=== PATIENT | male | born 1985 | race American Indian/Alaskan Native ===

== ENCOUNTER 2019-03-01 03:46 | Emergency (ER) | payer BC ==
[2019-03-01 04:14] LABS: Basophils % (Auto) 0.5 % (0.0-1.8); Eosinophils % (Auto) 0.1 % (0.0-4.3); Hemoglobin 15.8 gm/dl (11.8-15.2); Lymphocytes # (Auto) 2.1 K/mm3 (1.2-5.4); Lymphocytes % (Auto) 23.5 % (13.4-35.0); Mean Corpuscular HGB Conc 33 % (32-34); Monocytes # (Auto) 1.1 K/mm3 (0.0-0.8); Monocytes % (Auto) 11.9 % (0.0-7.3); Platelet Count 196 K/mm3 (140-440); Red Blood Count 6.99 M/mm3 (3.65-5.03); Red Cell Distribution Width 15.4 % (13.2-15.2)
[2019-03-01 04:16] LABS: Mean Corpuscular Volume 69 fl (84-94)
[2019-03-01 04:41] LABS: Alanine Aminotransferase 51 units/L (7-56); Albumin 4.6 g/dL (3.9-5); BUN/Creatinine Ratio 7; Blood Urea Nitrogen 8 mg/dL (9-20); Calcium 9.5 mg/dL (8.4-10.2); Hemolysis Index 8
[2019-03-01] MEDS ORDERED: NACL 0.9% 1000 ML 2,000 ML IV ONE (04:50)
[2019-03-01] MEDS ORDERED: ATIVAN IM PRN (04:50)
[2019-03-01] MEDS ORDERED: PEPCID IV ONE (04:50)
--- NOTE | 2019-03-01 04:55 | Event Note ---
Date: 03/01/19 Medical screening examination: 33-year-old gentleman, now sleeping in stretcher, does not appear to be in any acute distress, tachycardic. Reportedly consuming alcohol, and reportedly had episode of loss of consciousness in triage. Plan is to check basic laboratory studies, EKG, placed on keypuncher, obtain CT scan of the brain and cervical spine. Abdomen soft and benign, without rebound, guarding or peritoneal signs. Patient placed on hold pending clinical sobriety. Vital Signs 03/01/19 03:57 Temperature 98.1 F Pulse Rate 120 H Respiratory 26 H Rate Blood Pressure 171/112 O2 Sat by Pulse 97 Oximetry Lab Results 03/01/19 03/01/19 Range/Units 03:54 03:54 WBC 9.0 (4.5-11.0) K/mm3 RBC 6.99 H (3.65-5.03) M/mm3 Hgb 15.8 H (11.8-15.2) gm/dl Hct 48.0 H (35.5-45.6) % MCV 69 L (84-94) fl MCH 23 L (28-32) pg MCHC 33 (32-34) % RDW 15.4 H (13.2-15.2) % Plt Count 196 (140-440) K/mm3 Lymph % (Auto) 23.5 (13.4-35.0) % Frio % (Auto) 11.9 H (0.0-7.3) % Eos % (Auto) 0.1 (0.0-4.3) % Baso % (Auto) 0.5 (0.0-1.8) % Lymph # 2.1 (1.2-5.4) K/mm3 Frio # 1.1 H (0.0-0.8) K/mm3 Eos # 0.0 (0.0-0.4) K/mm3 Baso # 0.0 (0.0-0.1) K/mm3 Seg Neutrophils % 64.0 (40.0-70.0) % Seg Neutrophils # 5.8 (1.8-7.7) K/mm3 Sodium 134 L (137-145) mmol/L Potassium 3.9 (3.6-5.0) mmol/L Chloride 93.6 L (98-107) mmol/L Carbon Dioxide 19 L (22-30) mmol/L Anion Gap 25 mmol/L BUN 8 L (9-20) mg/dL Creatinine 1.1 (0.8-1.5) mg/dL Estimated GFR > 60 ml/min BUN/Creatinine Ratio 7 % Glucose 123 H (75-100) mg/dL Calcium 9.5 (8.4-10.2) mg/dL Total Bilirubin 0.20 (0.1-1.2) mg/dL AST 47 H (5-40) units/L ALT 51 (7-56) units/L Alkaline Phosphatase 90 (35-129) units/L Total Protein 8.3 H (6.3-8.2) g/dL Albumin 4.6 (3.9-5) g/dL Albumin/Globulin Ratio 1.2 %
[2019-03-01 06:43] LABS: Bilirubin,Urine NEG (Negative); Blood,Urine SM (Negative); Color,Urine Straw (Yellow); Protein,Urine <15 mg/dL mg/dL (Negative); Urobilinogen,Urine < 2.0 mg/dL (<2.0)
[2019-03-01 06:51] LABS: Amphetamine Screen,Urine PRESUMPTIVE NEGATIVE; Benzodiazepines Screen,Urine PRESUMPTIVE NEGATIVE; Cannabinoid Screen,Urine PRESUMPTIVE NEGATIVE; Methadone Screen,Urine PRESUMPTIVE NEGATIVE; Opiate Screen,Urine PRESUMPTIVE NEGATIVE
[2019-03-01 07:05] LABS: Cocaine Screen,Urine PRESUMPTIVE POSITIVE
--- NOTE | 2019-03-01 07:07 | Cat Scan Report ---
CT HEAD WITHOUT CONTRAST INDICATION / CLINICAL INFORMATION: syncope intox. TECHNIQUE: All CT scans at this location are performed using CT dose reduction for ALARA by means of automated e xposure control. COMPARISON: None available. FINDINGS: HEMORRHAGE: None. EXTRA-AXIAL SPACES: Normal in size and morphology for the patient's age. VENTRICULAR SYSTEM: Normal in size and morphology for the patient's age. CEREBRAL PARENCHYMA: No significant abnormality. No acute territorial infarct. MIDLINE SHIFT OR HERNIATION: None. CEREBELLUM / BRAINSTEM: No significant abnormality. ORBITS: Normal as visualized. SOFT TISSUES of HEAD: No significant abnormality. CALVARIUM: No significant abnormality. PARANASAL SINUSES / MASTOID AIR CELLS: Chronic left maxillary sinusitis with cortical and expansion o f the left maxillary sinus with hyperdense mass noted likely secondary to fungal sinusitis. Moderate thickening left ethmoid air cells. ADDITIONAL FINDINGS: None. IMPRESSION: 1. No acute intracranial bleed. 2. Probable chronic left fungal sinusitis. Signer Name: Stevenson Barnett MD Signed: 03/01/2019 7:03 AM Workstation Name: [id number]
--- NOTE | 2019-03-01 07:08 | Cat Scan Report ---
CT CERVICAL SPINE WITHOUT CONTRAST INDICATION: syncope intox. TECHNIQUE: All CT scans at this location are performed using CT dose reduction for ALARA by means of automated e xposure control. Axial CT images were obtained through the cervical spine. Sagittal and coronal reformatted images we re produced. COMPARISON: None available. FINDINGS: Fracture: None. Subluxation: None. Spinal canal: No significant compromise. Disc spaces: Normal. Facet joints: Normal. Paraspinal soft tissues: No soft tissue swelling. Normal. Additional findings: None. Lung apices: Normal. IMPRESSION: 1. No acute findings. Signer Name: Stevenson Barnett MD Signed: 03/01/2019 7:04 AM Workstation Name: [id number]
--- NOTE | 2019-03-01 07:12 | Cat Scan Report ---
CT ABDOMEN AND PELVIS WITHOUT CONTRAST INDICATION: abd pain etoh tachy. TECHNIQUE: Axial CT images were obtained through the abdomen and pelvis without IV contrast. All CT scans at [facility] location are performed using CT dose reduction for ALARA by means of automated exposure control. COMPARISON: None available. FINDINGS: LOWER CHEST: No significant abnormality. LIVER: Cirrhosis with enlarged caudate and lateral hepatic segments. Several calcified hepatic granul omas GALLBLADDER: No significant abnormality. BILE DUCTS: No significant abnormality. PANCREAS: No significant abnormality. SPLEEN: Several calcified splenic granulomas. ADRENALS: No significant abnormality. RIGHT KIDNEY and URETER: 8 tiny punctate 1 to 2 mm right intrarenal stones. No hydronephrosis. LEFT KIDNEY and URETER: 6 tiny nonobstructing 1 to 2 mm left intrarenal stones. No hydronephrosis. STOMACH and SMALL BOWEL: No significant abnormality. COLON: No significant abnormality. APPENDIX: Normal. PERITONEUM: No free fluid. No free air. No fluid collection. LYMPH NODES: No significant adenopathy. AORTA and ARTERIES: No significant abnormality. IVC and VEINS: No significant abnormality. URINARY BLADDER: No significant abnormality. REPRODUCTIVE ORGANS: No significant abnormality. ADDITIONAL FINDINGS: None. SKELETAL SYSTEM: No significant abnormality. IMPRESSION: 1. Bilateral nephrolithiasis. No ureteral stone or hydronephrosis. 2. Early cirrhosis without CT evidence for portal hypertension. Signer Name: Stevenson Barnett MD Signed: 03/01/2019 7:08 AM Workstation Name: [email or web address]
[2019-03-01 08:33] VITALS: BP 149/94
--- NOTE | 2019-03-01 09:28 | Emergency Department Report ---
ED General Adult HPI - General Chief complaint: Abdominal Pain Stated complaint: ETOH Time Seen by Provider: 03/01/19 08:56 Source: patient Mode of arrival: Stretcher Limitations: No Limitations - History of Present Illness Initial comments: Mr. Ortez is a very pleasant healthy 33-year-old male without significant past medical history who presents to emergency department with racing thoughts and feeling jittery. He felt as if he had taken some unknown drug. He drank 3 beers last night. Arrived to the emergency department initially with sore throat and vomiting. He had a brief syncopal episode during our triage registration. No history of drug abuse. He drinks beer on a daily basis. -: Gradual, Last night Consistency: constant Improves with: none Worsens with: none - Related Data Home Medications Medication Instructions Recorded Confirmed Last Taken No Known Home Medications [No 03/01/19 03/01/19 Unknown Reported Home Medications] Allergies Allergy/AdvReac Type Severity Reaction Status Date / Time No Known Allergies Allergy Unverified 03/01/19 03:57 ED Review of Systems ROS: Stated complaint: ETOH Other details as noted in HPI Comment: All other systems reviewed and negative Constitutional: denies: fever, malaise Cardiovascular: palpitations Psychiatric: other (felt anxious with racing thoughts) ED Past Medical Hx - Past Medical History Previous Medical History?: No - Surgical History Past Surgical History?: No - Social History Smoking Status: Current Every Day Smoker Substance Use Type: Alcohol - Medications Home Medications: Home Medications Medication Instructions Recorded Confirmed Last Taken Type No Known Home Medications [No 03/01/19 03/01/19 Unknown History Reported Home Medications] ED Physical Exam - General Limitations: No Limitations General appearance: alert, in no apparent distress - Head Head exam: Present: atraumatic, normocephalic - Eye Eye exam: Present: normal appearance - ENT ENT exam: Present: mucous membranes moist - Neck Neck exam: Present: normal inspection, full ROM - Respiratory Respiratory exam: Present: normal lung sounds bilaterally. Absent: respiratory distress, wheezes, rales, rhonchi - Cardiovascular Cardiovascular Exam: Present: regular rate, normal rhythm, normal heart sounds. Absent: systolic murmur, diastolic murmur, rubs, gallop - GI/Abdominal GI/Abdominal exam: Present: soft, normal bowel sounds. Absent: distended, tenderness, guarding - Rectal Rectal exam: Present: deferred - Extremities Exam Extremities exam: Present: normal inspection - Back Exam Back exam: Present: normal inspection - Neurological Exam Neurological exam: Present: alert, oriented X3 - Psychiatric Psychiatric exam: Present: normal affect, normal mood - Skin Skin exam: Present: warm, dry, intact, normal color. Absent: rash ED Course Vital Signs 03/01/19 03/01/19 03/01/19 03:50 03:57 04:20 Temperature 98.1 F Pulse Rate 120 H 120 H 109 H Respiratory 12 26 H 26 H Rate Blood Pressure 171/112 171/112 148/111 O2 Sat by Pulse 95 97 95 Oximetry 03/01/19 03/01/19 03/01/19 04:30 04:50 05:00 Temperature Pulse Rate 106 H 111 H Respiratory 27 H 20 15 Rate Blood Pressure 152/100 156/109 O2 Sat by Pulse 97 99 99 Oximetry 03/01/19 03/01/19 03/01/19 06:10 06:30 07:00 Temperature Pulse Rate 105 H 103 H 104 H Respiratory 24 17 28 H Rate Blood Pressure 155/104 140/101 150/103 O2 Sat by Pulse 98 98 95 Oximetry 03/01/19 03/01/19 03/01/19 07:30 08:05 08:30 Temperature Pulse Rate 109 H 106 H 99 H Respiratory 20 20 Rate Blood Pressure 154/105 154/105 149/94 O2 Sat by Pulse 100 96 Oximetry ED Medical Decision Making - Lab Data Result diagrams: 03/01/19 03:54 03/01/19 03:54 Laboratory Results - last 24 hr 03/01/19 03/01/19 03/01/19 03:54 03:54 03:54 WBC 9.0 RBC 6.99 H Hgb 15.8 H Hct 48.0 H MCV 69 L MCH 23 L MCHC 33 RDW 15.4 H Plt Count 196 Lymph % (Auto) 23.5 Jackson % (Auto) 11.9 H Eos % (Auto) 0.1 Baso % (Auto) 0.5 Lymph # 2.1 Jackson # 1.1 H Eos # 0.0 Baso # 0.0 Seg Neutrophils % 64.0 Seg Neutrophils # 5.8 Sodium 134 L Potassium 3.9 Chloride 93.6 L Carbon Dioxide 19 L Anion Gap 25 BUN 8 L Creatinine 1.1 Estimated GFR > 60 BUN/Creatinine Ratio 7 Glucose 123 H Calcium 9.5 Magnesium 2.20 Total Bilirubin 0.20 AST 47 H ALT 51 Alkaline Phosphatase 90 Total Creatine Kinase 164 Total Protein 8.3 H Albumin 4.6 Albumin/Globulin Ratio 1.2 Urine Color Urine Turbidity Urine pH Ur Specific [place] Urine Protein Urine Glucose (UA) Urine Ketones Urine Blood Urine Nitrite Urine Bilirubin Urine Urobilinogen Ur Leukocyte Esterase Urine WBC (Auto) Urine RBC (Auto) Salicylates Urine Opiates Screen Urine Methadone Screen Acetaminophen Ur Barbiturates Screen Ur Phencyclidine Scrn Ur Amphetamines Screen U Benzodiazepines Scrn Urine Cocaine Screen U Marijuana (THC) Screen Drugs of Abuse Note Plasma/Serum Alcohol 03/01/19 03/01/19 03/01/19 03:54 03:54 03:54 WBC RBC Hgb Hct MCV MCH MCHC RDW Plt Count Lymph % (Auto) Jackson % (Auto) Eos % (Auto) Baso % (Auto) Lymph # Jackson # Eos # Baso # Seg Neutrophils % Seg Neutrophils # Sodium Potassium Chloride Carbon Dioxide Anion Gap BUN Creatinine Estimated GFR BUN/Creatinine Ratio Glucose Calcium Magnesium Total Bilirubin AST ALT Alkaline Phosphatase Total Creatine Kinase Total Protein Albumin Albumin/Globulin Ratio Urine Color Urine Turbidity Urine pH Ur Specific [place] Urine Protein Urine Glucose (UA) Urine Ketones Urine Blood Urine Nitrite Urine Bilirubin Urine Urobilinogen Ur Leukocyte Esterase Urine WBC (Auto) Urine RBC (Auto) Salicylates < 0.3 L Urine Opiates Screen Urine Methadone Screen Acetaminophen < 5.0 L Ur Barbiturates Screen Ur Phencyclidine Scrn Ur Amphetamines Screen U Benzodiazepines Scrn Urine Cocaine Screen U Marijuana (THC) Screen Drugs of Abuse Note Plasma/Serum Alcohol 0.11 H 03/01/19 03/01/19 06:15 06:15 WBC RBC Hgb Hct MCV MCH MCHC RDW Plt Count Lymph % (Auto) Jackson % (Auto) Eos % (Auto) Baso % (Auto) Lymph # Jackson # Eos # Baso # Seg Neutrophils % Seg Neutrophils # Sodium Potassium Chloride Carbon Dioxide Anion Gap BUN Creatinine Estimated GFR BUN/Creatinine Ratio Glucose Calcium Magnesium Total Bilirubin AST ALT Alkaline Phosphatase Total Creatine Kinase Total Protein Albumin Albumin/Globulin Ratio Urine Color Straw Urine Turbidity Clear Urine pH 6.0 Ur Specific [place] 1.005 Urine Protein <15 mg/dl Urine Glucose (UA) Neg Urine Ketones Neg Urine Blood Sm Urine Nitrite Neg Urine Bilirubin Neg Urine Urobilinogen < 2.0 Ur Leukocyte Esterase Neg Urine WBC (Auto) 1.0 Urine RBC (Auto) 2.0 Salicylates Urine Opiates Screen Presumptive negative Urine Methadone Screen Presumptive negative Acetaminophen Ur Barbiturates Screen Presumptive negative Ur Phencyclidine Scrn Presumptive negative Ur Amphetamines Screen Presumptive negative U Benzodiazepines Scrn Presumptive negative Urine Cocaine Screen Presumptive positive U Marijuana (THC) Screen Presumptive negative Drugs of Abuse Note Disclamer Plasma/Serum Alcohol - EKG Data 03/01/19 09:26 EKG obtained 0501 Sinus tachycardia weight 110 bpm normal axis and prolonged QT interval no significant ST elevation positive LVH no signs of ischemia - Radiology Data Radiology results: report reviewed CT head without acute intracranial bleed possible left fungal sinusitis CT C-spine: No acute process CT A/P: early cirrhosis, bilateral nephrolithiasis - Medical Decision Making Mr. Ortez presents with generalized malaise, odd sensation. UDS+cocaine which would explain patient's suspicion of drugs, early cirrhosis seen on CT. I have suggested alcohol abstinence. NO indication of acute emergent medical condition such as PE, arrhythmia to explain syncope. labs do reveal dehydration. Recommended rest hydration dc home Critical care attestation.: If time is entered above; I have spent that time in minutes in the direct care of this critically ill patient, excluding procedure time. ED Disposition Clinical Impression: Polysubstance abuse, Cirrhosis of liver Disposition: DC-01 TO HOME OR SELFCARE Is pt being admited?: No Does the pt Need Aspirin: No Condition: Stable Instructions: Cirrhosis (ED), Polysubstance Abuse (ED) Referrals: [facility] [Outside] - 3-5 Days Forms: Work/School Release Form(ED)
== END 2019-03-01 10:08 | disposition home or self-care (01) ==
LOC: ED 03:46
DX: K74.60 Unspecified cirrhosis of liver (principal); F19.10 Other psychoactive substance abuse, uncomplicated; F14.129 Cocaine abuse with intoxication, unspecified; F41.9 Anxiety disorder, unspecified; F17.200 Nicotine dependence, unspecified, uncomplicated
CPT/HCPCS: 36415; 70450; 72125; 74176; 80053; 80307; 81001; 82550; 83735; 85025; 93005; 93010; 96361; 96374; 99284; J7030; 80320; G0480